=== PATIENT | male | born 1965 | race Caucasian/White ===

== ENCOUNTER 2017-11-25 02:25 | Emergency (ER) | payer OTHER ==
[2017-11-25] MEDS ORDERED: IBUPROFEN 200 MG TAB ONE (02:34)
== END 2017-11-25 03:00 | disposition home or self-care (01) ==
LOC: EDH 02:25
DX: K40.90 Unilateral inguinal hernia, without obstruction or gangrene, not specified as recurrent (principal); J44.9 Chronic obstructive pulmonary disease, unspecified; Z72.0 Tobacco use

== ENCOUNTER 2020-03-14 21:48 | Inpatient (IN) | payer MEDICARE, OTHER ==
[~2020-03-14] VITALS: Ht 180.3 cm; Wt 64.0 kg
[2020-03-14 23:03] LABS: BASOPHILS % (AUTO) 0.5 % (0.0-5.0); EOSINOPHILS % (AUTO) 1.7 % (0.0-8.0); HEMATOCRIT 39.3 % (42-54); LYMPHOCYTES % (AUTO) 22.1 % (21.0-51.0); MEAN CORPUSCULAR HEMOGLOBIN 30.3 pg (27.0-33.0); MEAN CORPUSCULAR HGB CONC 34.1 g/dL (32.0-36.0); MEAN CORPUSCULAR VOLUME 88.9 fL (79-99); MONOCYTES % (AUTO) 5.2 % (3.0-13.0); NEUTROPHILS % (AUTO) 70.2 % (40.0-77.0); PLATELET COUNT (AUTO) 293 K/uL (130-400); RED BLOOD CELL COUNT(AUTO) 4.42 MIL/uL (4.50-6.20); RED CELL DISTRIBUTION WIDTH 13.5 % (11.0-15.5); WHITE BLOOD COUNT (AUTO) 10.1 K/uL (4.8-10.8)
[2020-03-14 23:20] LABS: ALBUMIN 3.4 g/dL (3.5-5.0); BILIRUBIN,TOTAL 0.2 mg/dL (0.2-1.0); TOTAL PROTEIN, SERUM 6.7 g/dL (6.0-8.3)
[2020-03-15] VITALS (14 sets, daily range): BP systolic 104–178; BP diastolic 60–96
[2020-03-15] MEDS ORDERED: ASPIRIN 325 MG TABLET ONE (00:02)
[2020-03-15 00:25] LABS: INR 0.92 (0.85-1.15); PARTIAL THROMBOPLASTIN TIME 26.7 SEC (26.3-35.5)
[2020-03-15] MEDS ORDERED: NITROGLYCERIN 1GM/1 INCH PACKET TD ONE (00:27)
[2020-03-15] MEDS ORDERED: POTASSIUM BICARB/CIT AC 25 MEQ TABLET.EFF ONE (00:28)
[2020-03-15 00:44] LABS: APPEARANCE,URINE Clear (CLEAR); BILIRUBIN,URINE Negative (NEGATIVE); COLOR,URINE Yellow (YELLOW); GLUCOSE, URINE (UA) TRACE mg/dL (NEGATIVE); KETONES,URINE Negative (NEGATIVE); LEUKOCYTE ESTERASE ,URINE Negative (NEGATIVE); NITRATE,URINE Negative (NEGATIVE); OCCULT BLOOD,URINE Negative (NEGATIVE); PROTEIN,URINE Negative (NEGATIVE)
[2020-03-15] MEDS ORDERED: DiphenhydrAMINE HCL 50 MG/ML VIAL ONE ×2 (01:27→13:51)
[2020-03-15 01:38] LABS: AMPHET/METH SCREEN,URINE NEGATIVE (NEGATIVE); BARBITURATE SCREEN, URINE NEGATIVE (NEGATIVE); BENZODIAZEPINES SCREEN,URINE NEGATIVE (NEGATIVE); CANNABINOID SCREEN,URINE POSITIVE (NEGATIVE); COCAINE SCREEN,URINE NEGATIVE (NEGATIVE); OPIATE SCREEN,URINE NEGATIVE (NEGATIVE); PHENCYCLIDINE SCREEN,URINE NEGATIVE (NEGATIVE)
[2020-03-15 03:51] LABS: HEMATOCRIT 37.5 % (42-54); MEAN CORPUSCULAR HEMOGLOBIN 30.8 pg (27.0-33.0); MEAN CORPUSCULAR HGB CONC 34.4 g/dL (32.0-36.0); MEAN CORPUSCULAR VOLUME 89.5 fL (79-99); RED BLOOD CELL COUNT(AUTO) 4.19 MIL/uL (4.50-6.20); RED CELL DISTRIBUTION WIDTH 13.7 % (11.0-15.5); WHITE BLOOD COUNT (AUTO) 8.3 K/uL (4.8-10.8)
[2020-03-15 04:24] LABS: POTASSIUM 3.4 mmol/L (3.5-5.1)
[2020-03-15 04:39] LABS: TROPONIN I 0.79 ng/mL (0.00-0.06)
--- NOTE | 2020-03-15 07:30 | NUR ---
ASSESSMENT ENCOUNTERED PT A&OX3, CALM COOPERATIVE AND DOES NOT APPEAR TO BE IN ANY DISTRESS NOR ANY NEURO DEFICITS PRESENT. PT DENIES PAIN, SOB, NAUSEA. PT IS AMBULATORY, GAIT STEADY AND STRONG WITH STAND BY ASSIST. PT IS NPO FOR PENDING LEXISCAN. CALL LIGHT WITHIN REACH.
[2020-03-15] MEDS: ENOXAPARIN SODIUM 30 MG/0.3 ML SQ SCH (09:00)
[2020-03-15] MEDS ORDERED: ASPIRIN 325 MG TABLET PO SCH (09:00)
--- NOTE | 2020-03-15 10:00 | NUR ---
DCP CM met with pt discussed dc plans. Pt is independent prior to admission, lives at home with spouse. Dneies any equipments/services. Feels safe to go back home, still drives, spouse able to assist with transportation and needs as necessary. DC plan to home once stable. CM to cont to follow up. Addendum: 03/15/20 at 1307 by KEM MCKEON LVN CM Amended: Links added.
[2020-03-15 10:47] LABS: TROPONIN I 1.15 ng/mL (0.00-0.06)
--- NOTE | 2020-03-15 12:00 | NUR ---
DR DA SILVA AT BEDSIDE UPDATE GIVEN, ORDERS RECEIVED.
[2020-03-15] MEDS ORDERED: SODIUM CHLORIDE 0.9% 500ML 500 ML IV SCH (12:15)
[2020-03-15] MEDS ORDERED: IOHEXOL-350 50ML VIAL IV ONE ×2 (12:30→13:30)
[2020-03-15] MEDS ORDERED: LIDOCAINE HCL 2% 20ML ONE (12:30)
[2020-03-15] MEDS ORDERED: MIDAZOLAM HCL 1 MG/ML 2ML VIAL ONE (12:30)
[2020-03-15] MEDS ORDERED: HEPARIN SODIUM 1000UNIT/ML 10ML VIAL ONE (12:30)
[2020-03-15] MEDS ORDERED: IOHEXOL 350 MG/ML 100ML INFUS..BTL IV ONE (12:30)
[2020-03-15] MEDS ORDERED: ASPIRIN 81MG TAB.CHEW ONE (13:29)
[2020-03-15] MEDS ORDERED: CLOPIDOGREL BISULFATE 300 MG TAB ONE (13:29)
[2020-03-15] MEDS ORDERED: ACETAMINOPHEN-CODEINE 300/30MG TAB PO PRN ×2 (14:00)
[2020-03-15] MEDS ORDERED: ONDANSETRON HCL 4 MG/2 ML VIAL IVP PRN (14:00)
[2020-03-15] MEDS ORDERED: TEMAZEPAM 30 MG CAP PO PRN (14:00)
--- NOTE | 2020-03-15 14:00 | NUR ---
POST PROCEDURE RECEIVED PT FROM [employer], IN FLAT POSITION, A&OX3, CALM COOPERATIVE AND DOES NOT APPEAR TO BE IN ANY DISTRESS NOR ANY NEURO DEFICITS PRESENT. RT GROIN SOFT NONTENDER WITH NO OOZING OR HEMATOMA PRESENT. DP/PT PULSES PALPABLE. PT ON BEDREST FOR 4 HOURS UNTIL 1800. CALL LIGHT WITHIN REACH.
[2020-03-15] MEDS ORDERED: SIMV10TA97 PO (14:37)
[2020-03-15] MEDS ORDERED: MONT10TA26 PO (14:37)
[2020-03-15] MEDS ORDERED: OMEP40CA13 PO (14:37)
[2020-03-15] MEDS ORDERED: TAMS-1 PO (14:37)
[2020-03-15] MEDS ORDERED: PANTOPRAZOLE SODIUM 40 MG TABLET.DR ONE (15:18)
[2020-03-15] MEDS: LISINOPRIL 10 MG TABLET PO SCH (15:21)
[2020-03-15] MEDS ORDERED: TAMSULOSIN HCL 0.4 MG CAP.ER.24H ONE (15:23)
[2020-03-15] MEDS: PANTOPRAZOLE SODIUM 40 MG TABLET.DR PO SCH (16:00)
[2020-03-15] MEDS ORDERED: TAMSULOSIN HCL 0.4 MG CAP.ER.24H PO SCH (21:00)
[2020-03-15] MEDS ORDERED: MONTELUKAST SODIUM 10 MG TAB PO SCH (21:00)
[2020-03-16 03:39] VITALS: BP 143/77
[2020-03-16 04:48] LABS: HEMATOCRIT 45.1 % (42-54); MEAN CORPUSCULAR HEMOGLOBIN 29.5 pg (27.0-33.0); MEAN CORPUSCULAR HGB CONC 33.3 g/dL (32.0-36.0); MEAN CORPUSCULAR VOLUME 88.6 fL (79-99); RED BLOOD CELL COUNT(AUTO) 5.09 MIL/uL (4.50-6.20); RED CELL DISTRIBUTION WIDTH 13.6 % (11.0-15.5); WHITE BLOOD COUNT (AUTO) 13.5 K/uL (4.8-10.8)
[2020-03-16 05:07] LABS: CREATININE 0.9 mg/dL (0.5-1.5); POTASSIUM 3.9 mmol/L (3.5-5.1)
[2020-03-16] MEDS ORDERED: LISI-617 PO (06:45)
[2020-03-16] MEDS ORDERED: ASPI-1005 PO (06:45)
[2020-03-16] MEDS ORDERED: METO-408 PO (06:45)
[2020-03-16] MEDS ORDERED: CLOP75TA14 PO (06:45)
[2020-03-16 08:00] VITALS: BP 113/88
[2020-03-16] MEDS: ENOXAPARIN SODIUM 30 MG/0.3 ML SQ SCH (08:42)
[2020-03-16] MEDS: PANTOPRAZOLE SODIUM 40 MG TABLET.DR PO SCH (08:42)
[2020-03-16] MEDS: LISINOPRIL 10 MG TABLET PO SCH (08:42)
--- NOTE | 2020-03-16 08:43 | NUR ---
Patient discharged at this time. No oozing or hematoma present at cath site. Patient in stable condition with no complaints of pain. Patient insistent on leaving now, and refusing to wait for staff to schedule follow up appointments. Patient was instructed to call provided numbers to schedule appointments with Dixon Campos and [facility]. Patient verbalized understanding and agreement. Patient escorted down by staff.
[2020-03-16] MEDS ORDERED: CLOPIDOGREL BISULFATE 75 MG TAB PO SCH (09:00)
[2020-03-16] MEDS ORDERED: ASPIRIN 81MG TAB.CHEW PO SCH (09:00)
[2020-03-16] MEDS ORDERED: METOPROLOL SUCCINATE 50 MG TAB.SR.24H PO SCH (09:00)
[2020-03-16] MEDS ORDERED: ATORVASTATIN CALCIUM 40 MG TABLET PO SCH (21:00)
== END 2020-03-16 09:30 | disposition home or self-care (01) | DRG 247 ==
LOC: EDH 21:48 → EDHIP 03-15 00:35 → 4CH 03-15 01:56
PROVIDERS: ADMIT Family Medicine; ATTEND Family Medicine
PROC: 027034Z Dilation of Coronary Artery, One Artery with Drug-eluting Intraluminal Device, Percutaneous Approach (ICD-10-PCS; principal; 2020-03-15)
PROC: 4A023N7 Measurement of Cardiac Sampling and Pressure, Left Heart, Percutaneous Approach (ICD-10-PCS; 2020-03-15)
PROC: B2111ZZ Fluoroscopy of Multiple Coronary Arteries using Low Osmolar Contrast (ICD-10-PCS; 2020-03-15)
PROC: B2151ZZ Fluoroscopy of Left Heart using Low Osmolar Contrast (ICD-10-PCS; 2020-03-15)
DX: I21.4 Non-ST elevation (NSTEMI) myocardial infarction (principal); I25.119 Atherosclerotic heart disease of native coronary artery with unspecified angina pectoris; I10 Essential (primary) hypertension; F12.90 Cannabis use, unspecified, uncomplicated; E78.5 Hyperlipidemia, unspecified; E11.9 Type 2 diabetes mellitus without complications; K29.70 Gastritis, unspecified, without bleeding; Z79.01 Long term (current) use of anticoagulants; Z79.82 Long term (current) use of aspirin; Z79.899 Other long term (current) drug therapy; Z82.49 Family history of ischemic heart disease and other diseases of the circulatory system
CPT/HCPCS: 36415; 71046; 80048; 80053; 80061; 80305; 81003; 82550; 83690; 83735; 83874; 83880; 84484; 85025; 85027; 85347; 85610; 85730; 93005; 93306; 93356; 93458; 99156; 99157; 99291; C1760; C1769; C1887; C1894; C9600; G0378; J1200; J1644; J1650; J2250; J3490; Q9967

== ENCOUNTER → 2020-04-20 | Outpatient (CLI) | payer MEDICARE ==
[~2020-04-20] MED LIST: ASPI-1005 PO; CLOP75TA14 PO; LISI-617 PO; METO-408 PO; MONT10TA26 PO; OMEP40CA13 PO; TAMS-1 PO
== END | disposition home or self-care (01) ==
LOC: SHCH 07:50
PROVIDERS: ATTEND Internal Medicine Cardiovascular Disease
DX: I70.201 Unspecified atherosclerosis of native arteries of extremities, right leg (principal)
CPT/HCPCS: 93925

== ENCOUNTER → 2020-06-21 | Outpatient (CLI) | payer MEDICARE | END | disposition home or self-care (01) | LOC: SHCH 14:26 | PROVIDERS: ATTEND Internal Medicine Cardiovascular Disease | DX: I25.10 Atherosclerotic heart disease of native coronary artery without angina pectoris (principal) | CPT/HCPCS: 93880 ==